=== PATIENT | male | born 1955 | race Caucasian/White ===

== ENCOUNTER 2016-05-20 10:22 | Emergency (ER) | payer OTHER ==
[~2016-05-20] VITALS: Ht 170.2 cm; Wt 67.0 kg
[~2016-05-20 10:22] MED LIST: WESTCORT 0.2% C15 GM TP
[2016-05-20] MEDS ORDERED: PREDNISONE20 MG PO (12:18)
[2016-05-20] MEDS ORDERED: ATARAX,VISTARIL25 MG PO (12:18)
[2016-05-20] MEDS ORDERED: LEVAQUIN500 MG PO (12:18)
[2016-05-20] MEDS ORDERED: ELIMITE 5% CREA60 GM TP (12:18)
[2016-05-20 12:38] VITALS: BP 128/82
== END 2016-05-20 12:39 | disposition home or self-care (01) ==
LOC: EME 10:22
DX: B86 Scabies (principal); J32.9 Chronic sinusitis, unspecified; J02.9 Acute pharyngitis, unspecified; Z72.0 Tobacco use
CPT/HCPCS: 99281; 99283

== ENCOUNTER 2016-06-02 09:57 | Emergency (ER) | payer OTHER ==
[~2016-06-02] VITALS: Ht 170.2 cm; Wt 106.7 kg
[~2016-06-02 09:57] MED LIST changes: +ATARAX,VISTARIL25 MG PO; +ELIMITE 5% CREA60 GM TP; +LEVAQUIN500 MG PO; +PREDNISONE20 MG PO
[2016-06-02 12:30] LABS: ADD MIUA? YES; BILIRUBIN NEGATIVE; BLOOD NEGATIVE; COLOR YELLOW ((YELLOW)); GLUCOSE (STRIP) NEGATIVE; KETONES NEGATIVE; LEUKOCYTES NEGATIVE; NITRITE NEGATIVE; PROTEIN (STRIP) 30; SPECIFIC GRAVITY 1.024 (1.000-1.030); UROBILINOGEN 0.2 MG/DL (0.2-1.0)
[2016-06-02 12:46] LABS: EOSINOPHIL (%) 1.5 % (0-5); EOSINOPHIL COUNT 0.2 K/uL (0-0.3); HEMATOCRIT 50.3 % (38.0-50.0); IMMATURE GRANULOCYTE (%) 0.7 % (0.0-0.7); IMMATURE GRANULOCYTE COUNT 0.1 K/uL; INSTRUMENT ABS NEUTROPHIL CT 7.2 K/uL; LYMPHOCYTE COUNT 1.7 K/uL (1.0-2.8); MCH 32.7 PG (29.0-34.0); MCV 96.2 FL (86-99); MEAN PLAT.VOLUME 9.8 uM^3 (9.0-12.4); MONOCYTE (%) 8.5 % (3-12); MONOCYTE COUNT 0.9 K/uL (0-0.8); NEUTROPHIL (%) 72.1 % (45-76); NEUTROPHIL COUNT 7.2 K/uL (1.8-6.4); PLATELET COUNT 262 K/uL (156-360); RBC DIS.WIDTH-CV 12.1 % (11.8-14.6); RBC DIS.WIDTH-SD 43.4 % (39-53); RED BLOOD COUNT 5.23 M/uL (4.00-5.50)
[2016-06-02 13:02] LABS: BACTERIA RARE /HPF; EPITHELIAL CELLS RARE /HPF; MUCUS 1+ /LPF; RED BLOOD CELLS RARE /HPF (0-5); UCUL ADDED? NO; WHITE BLOOD CELLS NONE SEEN /HPF (0-5)
[2016-06-02 13:04] LABS: CHLORIDE 103 mEq/L (99-109); POTASSIUM 3.9 mEq/L (3.7-5.4); SODIUM 136 mEq/L (136-147)
[2016-06-02 13:06] LABS: GLUCOSE 86 mg/dL (70-99)
[2016-06-02 13:07] LABS: ANION GAP 10 MEQ/L (2-14)
[2016-06-02 13:10] LABS: GFR ESTIMATE (CALCULATED) > 59 mL/min/
[2016-06-02 13:11] LABS: UREA NITROGEN (BUN) 13 mg/dL (9-23)
[2016-06-02] MEDS ORDERED: ULTRAM50 MG PO (13:25)
[2016-06-02 13:44] VITALS: BP 126/78
== END 2016-06-02 13:58 | disposition home or self-care (01) ==
LOC: EME 09:57 → EXP 09:57
PROVIDERS: Physician Assistant
DX: M54.5 Low back pain (principal); F17.200 Nicotine dependence, unspecified, uncomplicated
CPT/HCPCS: 80048; 81003; 85025; 99281; 99284; J2270

== ENCOUNTER 2016-06-13 12:08 | Emergency (ER) | payer OTHER ==
[~2016-06-13] VITALS: Ht 170.2 cm; Wt 62.6 kg
[~2016-06-13 12:08] MED LIST changes: +ULTRAM50 MG PO
[2016-06-13] MEDS ORDERED: FLEXERIL10 MG PO (14:17)
[2016-06-13] MEDS ORDERED: NAPROSYN500 MG PO (14:17)
[2016-06-13 14:25] VITALS: BP 111/95
== END 2016-06-13 14:30 | disposition home or self-care (01) ==
LOC: EME 12:08
DX: S39.012A Strain of muscle, fascia and tendon of lower back, initial encounter (principal); F17.200 Nicotine dependence, unspecified, uncomplicated
CPT/HCPCS: 99281; 99283; J1885

== ENCOUNTER 2016-06-18 15:17 | Emergency (ER) | payer OTHER ==
[~2016-06-18] VITALS: Ht 170.2 cm; Wt 63.6 kg
[~2016-06-18 15:17] MED LIST changes: +FLEXERIL10 MG PO; +NAPROSYN500 MG PO
[2016-06-18 17:29] LABS: HEMATOCRIT 51.3 % (38.0-50.0); MCH 32.2 PG (29.0-34.0); MCHC 34.1 G/DL (30.0-36.0); MCV 94.5 FL (86-99); MEAN PLAT.VOLUME 10.3 uM^3 (9.0-12.4); PLATELET COUNT 283 K/uL (156-360); RBC DIS.WIDTH-CV 11.9 % (11.8-14.6); RBC DIS.WIDTH-SD 41.6 % (39-53); RED BLOOD COUNT 5.43 M/uL (4.00-5.50); WHITE BLOOD COUNT 10.7 K/uL (4.1-10.2)
[2016-06-18 17:38] LABS: CHLORIDE 102 mEq/L (99-109); POTASSIUM 4.4 mEq/L (3.7-5.4); SODIUM 138 mEq/L (136-147)
[2016-06-18 17:39] LABS: GLUCOSE 91 mg/dL (70-99)
[2016-06-18 17:41] LABS: ANION GAP 16 MEQ/L (2-14)
[2016-06-18 17:43] LABS: GFR ESTIMATE (CALCULATED) > 59 mL/min/
[2016-06-18 17:44] LABS: UREA NITROGEN (BUN) 26 mg/dL (9-23)
[2016-06-18 17:50] LABS: TROP-I INTERPRETATION NEGATIVE; TROPONIN-I < 0.01 ng/mL (0.0-0.30)
[2016-06-19 03:07] VITALS: BP 130/85
== END 2016-06-19 03:08 | disposition short-term general hospital (02) ==
LOC: EME 15:17
PROVIDERS: Nurse Practitioner Family
DX: R91.8 Other nonspecific abnormal finding of lung field (principal); C79.9 Secondary malignant neoplasm of unspecified site; M62.81 Muscle weakness (generalized); M54.5 Low back pain; F17.200 Nicotine dependence, unspecified, uncomplicated
CPT/HCPCS: 71020; 71275; 72100; 72158; 80048; 84484; 85027; 93005; 99281; 99285; J1100; J1885; J7030

== ENCOUNTER 2016-07-30 08:04 | Inpatient (IN) | payer OTHER ==
[~2016-07-30] VITALS: Ht 170.2 cm; Wt 51.0 kg
[2016-07-30 08:30] LABS: EOSINOPHIL (%) 0 % (0-5); HEMATOCRIT 34.3 % (38.0-50.0); IMMATURE GRANULOCYTE (%) 0.8 % (0.0-0.7); IMMATURE GRANULOCYTE COUNT 0.1 K/uL; INSTRUMENT ABS NEUTROPHIL CT 12.3 K/uL; LYMPHOCYTE COUNT 0.3 K/uL (1.0-2.8); MCHC 34.1 G/DL (30.0-36.0); MCV 93.7 FL (86-99); MONOCYTE (%) 1.9 % (3-12); MONOCYTE COUNT 0.3 K/uL (0-0.8); NEUTROPHIL (%) 94.6 % (45-76); NEUTROPHIL COUNT 12.3 K/uL (1.8-6.4); RBC DIS.WIDTH-CV 13.2 % (11.8-14.6); RBC DIS.WIDTH-SD 45.1 % (39-53); RED BLOOD COUNT 3.66 M/uL (4.00-5.50)
[2016-07-30 08:52] LABS: CHLORIDE 103 mEq/L (99-109); POTASSIUM 4.3 mEq/L (3.7-5.4); SODIUM 137 mEq/L (136-147)
[2016-07-30 08:54] LABS: GLUCOSE 112 mg/dL (70-99)
[2016-07-30 08:55] LABS: ANION GAP 13 MEQ/L (2-14)
[2016-07-30 08:58] LABS: GFR ESTIMATE (CALCULATED) > 59 mL/min/; UREA NITROGEN (BUN) 37 mg/dL (9-23)
[2016-07-30 10:00] LABS: IMM.PLATELET FRACTION 9.2 (1-7); MEAN PLAT.VOLUME 12.3 uM^3 (9.0-12.4); PLAT.SUFFICIENCY DECREASED; PLATELET COUNT 40 K/uL (156-360)
[2016-07-30] MEDS ORDERED: LOVENOX100 MG/1 M SC (10:59)
[2016-07-30] MEDS ORDERED: AUGMENTIN875 MG PO (10:59)
[2016-07-30] MEDS ORDERED: ROBITUSSIN DM118 ML PO (11:00)
[2016-07-30] MEDS ORDERED: FLUCONAZOLE200 MG PO (11:00)
[2016-07-30] MEDS ORDERED: DUONEB 2.5-0.5 M3 ML AEROSOL (11:01)
[2016-07-30] MEDS ORDERED: PROTONIX20 MG PO (11:02)
[2016-07-30] MEDS ORDERED: LORAZEPAM0.5 MG PO (11:02)
[2016-07-30] MEDS ORDERED: PROCHLORPERAZIN10 MG PO (11:03)
[2016-07-30] MEDS ORDERED: DECADRON2 MG PO (11:03)
[2016-07-30] MEDS ORDERED: OXAYDO5 MG PO (11:06)
[2016-07-30] MEDS ORDERED: OXYCONTIN20 MG PO (12:24)
[2016-07-30 17:46] VITALS: BP 100/77
[2016-07-31 00:05] VITALS: BP 113/76
[2016-07-31 08:20] VITALS: BP 119/86
[2016-07-31] MEDS ORDERED: LORAZEPAM0.5 MG PO (13:44)
[2016-07-31] MEDS ORDERED: MORPHINE CON20 MG/M1 PO (13:44)
[2016-07-31] MEDS ORDERED: HYOSCYAMINE0.125 M1 SL (13:44)
== END 2016-07-31 18:51 | disposition hospice, home (50) | DRG 189 ==
LOC: EME 08:04 → EDOF 10:31 → 5EAST 17:26
PROVIDERS: Emergency Medicine
DX: J96.21 Acute and chronic respiratory failure with hypoxia (principal); Z51.5 Encounter for palliative care; Z66 Do not resuscitate; C79.31 Secondary malignant neoplasm of brain; C34.11 Malignant neoplasm of upper lobe, right bronchus or lung; C78.01 Secondary malignant neoplasm of right lung; C79.51 Secondary malignant neoplasm of bone; I10 Essential (primary) hypertension; Z68.1 Body mass index [BMI] 19.9 or less, adult; R62.7 Adult failure to thrive; G93.89 Other specified disorders of brain; Z80.1 Family history of malignant neoplasm of trachea, bronchus and lung; Z87.891 Personal history of nicotine dependence
CPT/HCPCS: 71010; 73130; 80048; 85025; 93005; 94799; 99281; 99284; J2270; J7644